=== PATIENT | female | born 1985 | race Caucasian/White ===

== ENCOUNTER 2019-08-09 15:43 | Observation (INO) | payer OTHER ==
[~2019-08-09] VITALS: Ht 170.2 cm; Wt 59.0 kg
--- NOTE | ~2019-08-09 | OR ---
[facility] [address], [place] [address] Draft DATE OF OPERATION: 08/09/2019 SURGEON: Terrance Grant MD PREOPERATIVE DIAGNOSIS: Severe left perirectal pain and exquisite tenderness. POSTOPERATIVE DIAGNOSES: 1. Severe left perirectal pain and exquisite tenderness. 2. Intersphincteric space without gross purulence. 3. Internal hemorrhoids without thrombosis. PROCEDURES PERFORMED: 1. Exam under anesthesia. 2. Incision and drainage, placement of yellow vessel loop, seton like drain, left perirectal space. ANESTHESIA: Saddle block and sedation, Nader Batsheva, IMPROVEMENT SPEC, and local 10 mL of 0.25% Marcaine with epinephrine. INDICATION: This 33-year-old white woman is a patient of Marcia Sinha. I was called late in the afternoon today after Marcia Sinha found the patient to have had severe left perianal pain since Wednesday (today is Wednesday). Her examination showed no sign of fluctuance per se, but exquisite tenderness there. She was directly admitted to the hospital. Clinical examination by myself shows it to be markedly tender, but without sign of cellulitis or fluctuance per se. Given the high probability, this represents a perirectal abscess or beginnings thereof. Recommendation was made for exam under anesthesia and probable incision and drainage and possible seton placement. The risks of bleeding, infection, failure of diagnosis, misdiagnosis, need for other indicated procedures and so forth was all reviewed with her and her . They understand and wished to proceed. FINDINGS: She had internal hemorrhoids, which were not thrombosed. There was no sign of acute fissure. The area in the left perianal space in the intersphincteric groove was incised and probed and had a space, but no collection of purulence per se. Careful insinuation of a hemostat in the perirectal space did not identify particularly a purulent collection. Cultures were obtained, however. A counter incision was made outside the PATIENT NAME: LANE TIDWELL OPERATIVE REPORT DATE OF : 83 REPORT #: [id number] PHYSICIAN: TERRANCE GRANT MD PCP: MARCIA SINHA PA-C REPORT IS CONFIDENTIAL AND NOT TO BE RELEASED WITHOUT AUTHORIZATION [facility] [address], [place] [address] Draft anal canal and a yellow vessel loop placed to allow for continued drainage. DESCRIPTION OF PROCEDURE: The patient was given a saddle block type anesthetic and placed in a prone jackknife position. Preoperative antibiotic cefoxitin was given. She was placed in prone jackknife position. The perianal area prepared with a Betadine based solution after taping the buttocks apart. Directed examination on the left and right side was undertaken showing no sign of fluctuance. The anal retractor was placed and there was internal hemorrhoidal change internally, but no sign of thrombosis, no bleeding, or other issue. The vaginal fourchette was normal. There was no sign of fistulous opening that could be seen. An anal retractor was placed and a close examination of the left perianal area undertaken. The intersphincteric groove could be identified. Using a 11 blade, an incision was made in that area maintaining a small incision. Hemostat was placed in the intersphincteric groove and gently passed into the area and spread. There was no sign of gross purulence. There did appear to be a space maintained, however. A tonsil clamp was used to probe more deeply, but again no gross purulence noted. A small counter incision was made in the posterior aspect and the yellow vessel loop directed through the two incisions. Cultures were obtained in the deep space in the perirectal tissue, though there was no sign of gross purulence at this point. The vessel loop was tied and copious irrigation was undertaken in the perirectal space with sterile saline. 10 mL of 0.25% Marcaine with epinephrine was injected locally. A peripad was applied. The patient was returned to supine position and taken to recovery room in good condition. MD FARIDA Smith/KELVIN /[id number] cc: Marcia Sinha PA-C PATIENT NAME: LANE TIDWELL OPERATIVE REPORT DATE OF : 83 REPORT #: [id number] PHYSICIAN: TERRANCE GRANT MD PCP: MARCIA SINHA PA-C REPORT IS CONFIDENTIAL AND NOT TO BE RELEASED WITHOUT AUTHORIZATION [facility] [address] [place] [address] [place] [address] Draft Copies: MARCIA SINHA PA-C ~ PATIENT NAME: LANE TIDWELL OPERATIVE REPORT DATE OF : 83 REPORT #: [id number] PHYSICIAN: TERRANCE GRANT MD PCP: MARCIA SINHA PA-C REPORT IS CONFIDENTIAL AND NOT TO BE RELEASED WITHOUT AUTHORIZATION
--- NOTE | ~2019-08-09 | HP ---
[facility] [address], [place] [address] Draft ADMISSION DATE: 08/09/2019 REASON FOR ADMISSION: Severe right perianal pain, probable perirectal abscess. HISTORY OF PRESENT ILLNESS: This 33-year-old white woman is accompanied by her . She saw CHARY Rivera, today with significant pain in the perianal area on the left side. There was no obvious fluctuance, but marked tenderness in the left perianal area. The patient is self described as having hemorrhoids in the past. She has never had anorectal problems in the past. She has never had childbirth. I was called by Marcia Sinha about this and recommended direct admission to the hospital on a strong suspicion this represents perirectal abscess. She is admitted on that basis. PAST MEDICAL HISTORY: Significant for wisdom tooth extraction, but no other major medical issues. She underwent colonoscopy in 2016 for reasons that are uncertain to me. SOCIAL HISTORY: She is . She is accompanied by her . 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 REVIEW OF SYSTEMS: She denies any shortness of breath or chest pain, but has had nausea and she thinks it is likely related to the severe anorectal pain. Notably, her symptoms began on Wednesday (today is Wednesday). PHYSICAL EXAMINATION: GENERAL: A pleasant well-developed, well-nourished, white woman, who does not look systemically toxic. She is accompanied by her . NECK: Trachea is midline. CHEST: Shows normal respiratory excursion. HEART: Pulses regular. ABDOMEN: Soft, nondistended. Examination in the lateral Sanches position with nurse at bedside as logistics clerk and also in the room shows exquisite tenderness in the left perianal area. She has absolutely no hemorrhoidal disease. There is no evidence of fissure. Grossly, the right side is normal. There is some tenderness in the posterior midline. PATIENT NAME: LANE TIDWELL HISTORY AND PHYSICAL DATE OF : [birth year] REPORT #: [id number] PHYSICIAN: TERRANCE GRANT MD PCP: MARCIA SINHA PA-C REPORT IS CONFIDENTIAL AND NOT TO BE RELEASED WITHOUT AUTHORIZATION [facility] [address] [place], [place] [address] Draft ASSESSMENT: Despite the innocuous appearance of the anorectum, she likely has a perirectal abscess, which is yet to become fluctuant and attempt necessitation. I would recommend exam under anesthesia and probable incision and drainage of perirectal abscess. Certainly, imaging studies would be a consideration but they tend to be unhelpful and unreliable in my experience in this situation, and exam under anesthesia with appropriate interrogation of the anorectal area operatively more likely to be beneficial. The risks of bleeding, infection, sphincter damage (unlikely), and probability of placement of a vessel loop for continued drainage was all reviewed with the patient and her , they understand and wished to proceed. Notably, the patient has been n.p.o. since 1 p.m., at which time she had a very light lunch. It is nearly 8 o'clock now. MD FARIDA Smith/DIONISIOL /[id number] cc: Marcia Sinha PA-C Copies: MARCIA SINHA PA-C ~ PATIENT NAME: LANE TIDWELL HISTORY AND PHYSICAL DATE OF : 83 REPORT #: [id number] PHYSICIAN: TERRANCE GRANT MD PCP: MARCIA SINHA PA-C REPORT IS CONFIDENTIAL AND NOT TO BE RELEASED WITHOUT AUTHORIZATION
[~2019-08-09 15:43] MED LIST: REGLAN10 MG PO
[2019-08-10] MEDS ORDERED: IBUPROFEN600 MG PO (11:10)
[2019-08-10] MEDS ORDERED: TYLENOL325 MG PO (11:10)
[2019-08-10] MEDS ORDERED: AMOX TR-K CLV1 EAC1 PO (11:10)
== END 2019-08-10 12:25 | disposition home or self-care (01) ==
LOC: MS 15:43
PROVIDERS: ADMIT Surgery
PROC: 0D9P0ZZ Drainage of Rectum, Open Approach (ICD-10-PCS; principal; 2019-08-09 19:59)
DX: K62.89 Other specified diseases of anus and rectum (principal); K64.8 Other hemorrhoids
CPT/HCPCS: 00902; 36415; 84703; 85025; 96374; G0378; G0379; J0694; J1885; J2250; J2704; J7060; J7120